=== PATIENT | male | born 1980 | race Caucasian/White ===

== ENCOUNTER 2019-02-09 08:53 | Day surgery (SDC) | payer BC, OTHER ==
[~2019-02-09] VITALS: Ht 165.1 cm; Wt 71.2 kg
[2019-02-09] VITALS (13 sets, daily range): BP systolic 97–129; BP diastolic 53–77; PULSE 58–77; RESP 10–20; Ht 165.1 cm; Wt 71.2 kg
[~2019-02-09 08:53] MED LIST: CEFAZOLIN 2 GM/50 ML (PMX) 50 ML IVPB SCH; SOD CHLORIDE 0.9% 1,000 ML IV SCH
--- NOTE | 2019-02-09 11:14 | PREAC ---
Date/Time of Note Date/Time of Note DATE: 02/09/19 TIME: 11:13 Anesthesia Eval and Record Evaluation Time Pre-Procedure Interview DATE: 02/09/19 TIME: 11:13 Age 38 Sex male NPO: 8 hrs Preoperative diagnosis dorsal cyst ganglion Planned procedure excision Past Medical History Past Medical History: Includes Endo: Hypothyroid Surgery & Anesthesia Issues No known issue Meds Anticoagulation: No Beta Puja within 24 hr: No Reason Beta Puja not given: Pt. not on B-Puja No Active Prescriptions or Reported Meds Current Medications Sodium Chloride 1,000 ml @ 75 mls/hr [id number] IV ; Start 02/09/19 at 06:00; Stop 02/09/19 at 19:19 Cefazolin Sodium/ Dextrose 50 ml @ 100 mls/hr PREOP IVPB ; Start 02/09/19 at 06:00; Stop 02/09/19 at 19:00 Meds reviewed: Yes Allergies Coded Allergies: No Known Allergy (Unverified , 02/06/19) Allergies Reviewed: Yes Labs/Studies Labs Reviewed: Reviewed by anesthesiologist Result Diagram: 02/09/19 0930 02/09/19 0930 Laboratory Tests 02/09/19 09:30 test: N/A Pre-procedure Exam Last vitals Vital Signs Date Temp Pulse Resp B/P (MAP) Pulse Ox O2 O2 Flow FiO2 Time Delivery Rate 02/09/19 97.6 77 16 115/77 98 Room Air 09:56 (90) Airway: Adequate mouth opening, Adequate thyromental dist Mallampati: Mallampati III Teeth: Normal Lung: Normal Heart: Normal ASA Physical Status ASA physical status: 2 Emergency: None Pre-operative Attestations Prior to commencing anesthesia and surgery, the patient was re-evaluated, there was verification of: *The patient's identity *The results of appropriate recent lab work and preoperative vital signs *The above evaluation not changing prior to induction *Anesthetic plan, risk benefits, alternative and complications discussed with patient/family; questions answered; patient/family understands, accepts and wishes to proceed. MARGY URIBE DO Feb 09, 2019 11:14
[2019-02-09] MEDS ORDERED: PROPOFOL 200 MG INJ ONE (11:28)
[2019-02-09] MEDS ORDERED: FENTAnyl 50 MCG/ML VIAL ONE ×2 (11:28→11:31)
[2019-02-09] MEDS ORDERED: MIDAZOLAM 1 MG/ML 2 ML INJ ONE (11:28)
[2019-02-09] MEDS ORDERED: LIDOCAINE 2% (SDV) 5 ML INJ ONE (11:28)
[2019-02-09] MEDS ORDERED: CEFAZOLIN 1 GM INJ ONE (11:29)
[2019-02-09] MEDS ORDERED: HYDROmorphONE 1 MG/5 ML IV SYRINGE IV PRN ×3 (11:30)
[2019-02-09] MEDS ORDERED: LIDOCAINE 2% (MDV) 20 ML INJ ONE (11:31)
[2019-02-09] MEDS ORDERED: BUPIVACAINE 0.5% (SDV) 30 ML INJ ONE (11:31)
[2019-02-09] MEDS ORDERED: KETOROLAC 30 MG INJ ONE (11:32)
[2019-02-09] MEDS ORDERED: ONDANSETRON 4 MG INJ ONE (11:48)
[2019-02-09] MEDS ORDERED: HYDROCODONE/APAP (5/325) TAB PO ONE (12:00)
--- NOTE | 2019-02-09 12:03 | OPR ---
Date/Time of Note Date/Time of Note DATE: 02/09/19 TIME: 11:59 Operative Report Procedure Date: Feb 09, 2019 Preoperative Diagnosis left dorsal wrist ganglion cyst x 2 Postoperative Diagnosis same Operation/Procedure Performed 1. excision of proximal dorsal wrist ganglion cyst 3 cm cyst 3 cm incision 2. localized adjacent tissue transfer with the use of skin flaps 6 sq cm defect of left wrist 3. excision of distal dorsal wrist ganglion cyst 2 cm cyst 2 cm incision 4. localized adjacent tissue transfer with the use of skin flaps 4 sq cm defect of left wrist 5. therapeutic injection of subcutaneous local anesthesia Surgeon see signature line Die Mounter none Anesthesia Type: general Estimated Blood Loss: 10 - 50 ml's Transfusion none Specimen left dorsal wrist ganglion cyst x 2 Grafts/Implants none Complications none Pt Condition Post Procedure: stable Indications This is a 38-year-old male with 2 left wrist dorsal ganglion cysts. He request surgical excision of the cyst. Risks alternatives benefits and personally discussed the patient. Patient expressed understanding consents to the operation. Procedure Description Patient is taken to the OR and prepped and draped in usual sterile fashion. Surgical time was performed. IV antibiotics given. Attention was then paid to the left dorsal ganglion cyst proximal portion. Transverse incision was made with a 15 blade. Dissection cautery skin onto the cyst. All retractors were placed. Cyst is ruptured in a controlled fashion and the contents are extruded out. The cyst was then dissected down with mosquito all the way to the base and excised with cautery. Good hemostasis status. Due to tissue defect localized adjacent to his transfer with these of skin flaps was performed. Multilayer closed with interrupted 3-0 Vicryl and running 4-0 Monocryl. Attention was then paid to the left dorsal distal wrist ganglion cyst. Transverse incision was made at the 15 blade. Dissection with cardioscan to the cyst. Own retractors were placed. The cyst is ruptured in a controlled fashion and the contents were suctioned out. The cyst is then dissected down to the cyst base with mosquito. The cyst was then excised with cautery. Good hemostasis status. Due to tissue defect localization to his transfer with use of skin flaps were performed. Multilayer closed with interrupted 3-0 Vicryl and running 4-0 Monocryl. Therapeutic contains local anesthesia was injected throughout both surgical sites. Dermabond was applied. Magalys SOTOMAYOR Feb 09, 2019 12:03
--- NOTE | 2019-02-09 12:17 | PAC ---
Date/Time of Note Date/Time of Note DATE: 02/09/19 TIME: 12:16 Post-Anesthesia Notes Post-Anesthesia Note Last documented vital signs Vital Signs Date Temp Pulse Resp B/P (MAP) Pulse Ox O2 O2 Flow FiO2 Time Delivery Rate 02/09/19 98 60 18 120/65 98 Room Air 09:56 Activity: WNL Respiratory function: WNL Cardiovascular function: WNL Mental status: Baseline Pain reasonably controlled: Yes Hydration appropriate: Yes Nausea/Vomiting absent: Yes MARGY URIBE DO Feb 09, 2019 12:17
== END 2019-02-09 13:35 | disposition home or self-care (01) ==
LOC: SDS 08:53
PROVIDERS: ATTEND Surgery
DX: M67.432 Ganglion, left wrist (principal); E03.9 Hypothyroidism, unspecified
CPT/HCPCS: 14020; 25111; 80053; 85025; 85610; 85730; 88304; J0690; J1885; J2250; J2405; J3010; Z7512; Z7610